=== PATIENT | male | born 1940 | race Asian ===

== ENCOUNTER → 2018-11-09 | Outpatient (CLI) | payer OTHER | END | disposition home or self-care (01) | LOC: CT 11:54 | PROC: BR29ZZZ Computerized Tomography (CT Scan) of Lumbar Spine (ICD-10-PCS; principal; 2018-11-09) | PROC: BR27ZZZ Computerized Tomography (CT Scan) of Thoracic Spine (ICD-10-PCS; 2018-11-09) | PROC: BW21ZZZ Computerized Tomography (CT Scan) of Abdomen and Pelvis (ICD-10-PCS; 2018-11-09) | DX: R10.9 Unspecified abdominal pain (principal); M54.9 Dorsalgia, unspecified ==